=== PATIENT | male | born 1985 | race Caucasian/White ===

== ENCOUNTER 2022-01-01 17:23 | Emergency (ER) | payer SELFPAY ==
[~2022-01-01] VITALS: Ht 167.6 cm; Wt 63.3 kg
[2022-01-01 17:36] VITALS: BP 151/95
--- NOTE | 2022-01-01 17:45 | NUR ---
BIB SELF C/O 8/10 MID BACK PAIN X 5 DAYS. DENIES TRAUMA/INJURY RECENTLY. PMH: BACK SURGERY 2 YEARS AGO
[2022-01-01] MEDS ORDERED: HYDROcodone/APAP 7.5/325 MG 1 TAB PO ONE (18:20)
[2022-01-01] MEDS ORDERED: ACET-8386 PO (18:33)
== END 2022-01-01 18:45 | disposition home or self-care (01) ==
LOC: MED 17:23
DX: S39.012A Strain of muscle, fascia and tendon of lower back, initial encounter (principal); Z88.6 Allergy status to analgesic agent; X58.XXXA Exposure to other specified factors, initial encounter; Y93.89 Activity, other specified; Y92.89 Other specified places as the place of occurrence of the external cause; Y99.8 Other external cause status
CPT/HCPCS: 99283